=== PATIENT | female | born 1960 | race Caucasian/White ===

== ENCOUNTER → 2019-03-23 | Outpatient (CLI) | payer OTHER ==
[~2019-03-23] MED LIST: ACET-2065 PO; ALBU6.7H8 INH; ALPR0.257 PO; AMLO10TA8 PO; BUDE10.2 INH; FAMO20TA7 PO; FLUT16SP2 NAS; GUAI600T80 PO; IPRA3AMP30 INH; MONT10TA6 PO; OMNIPAQUE 350 MG/ML, 75ML BOTTLE ONE; OXYC-302 PO; PRED10TA14 PO; maalox PO
== END | disposition home or self-care (01) ==
LOC: CFH 08:50
PROVIDERS: ATTEND Internal Medicine
DX: J47.9 Bronchiectasis, uncomplicated (principal); J45.50 Severe persistent asthma, uncomplicated; J30.9 Allergic rhinitis, unspecified; G43.909 Migraine, unspecified, not intractable, without status migrainosus; M19.90 Unspecified osteoarthritis, unspecified site; J34.89 Other specified disorders of nose and nasal sinuses; R91.1 Solitary pulmonary nodule; R19.8 Other specified symptoms and signs involving the digestive system and abdomen
CPT/HCPCS: 70487; 71250; Q9967